=== PATIENT | male | born 1960 | race Caucasian/White ===

== ENCOUNTER 2017-04-04 01:09 | Observation (INO) | payer BC ==
[2017-04-04] MEDS ORDERED: SODIUM CHLORIDE 0.9% 500 ML IV STA (01:21)
[2017-04-04] MEDS ORDERED: MORPHINE SULFATE 4 MG/ML SYRINGE IV STA (01:21)
[2017-04-04] MEDS ORDERED: ONDANSETRON 4 MG/2 ML VIAL IVP STA (01:21)
[2017-04-04] MEDS ORDERED: SODIUM CHLORIDE 0.9% 1,000 ML IV STA (01:21)
[2017-04-04] MEDS ORDERED: NITROGLYCERIN OINT 1 INCH/GM PACKET TOPICAL STA (01:21)
[2017-04-04] MEDS ORDERED: ASPIRIN 81 MG PO STA (01:21)
[2017-04-04 01:55] LABS: Basophils # (A) 0.1 k/uL (0-0.2); Basophils % (A) 1 %; CH 31.8; CHCM 34.4; Eosinophils # (A) 0.1 k/uL (0-0.7); Eosinophils % (A) 2 %; HCT 45.7 % (39.0-53.0); HDW 2.23; HGB 15.8 gm/dL (13.0-17.5); Luc # (Auto) 0.23; Luc % (Auto) 3; Lymphocytes # (A) 3.6 k/uL (1.0-4.8); Lymphocytes % (A) 42 %; MCHC 34.5 g/dL (31.0-37.0); MCV 92.7 fL (80.0-100.0); Mean Platelet Volume 7.5; Monocytes # (A) 0.5 k/uL (0-1.0); Monocytes % (A) 5 %; Neutrophils % (A) 47 %; RBC 4.93 m/uL (4.30-5.90); WBC 8.6 k/uL (3.8-10.6); WBC (Perox) 8.54
[2017-04-04 02:02] LABS: Partial Thromboplastin Time 24.5 sec (22.0-30.0); Prothrombin Time 10.4 sec (9.0-12.0)
[2017-04-04 02:38] LABS: Creatine Kinase 372 U/L (55-170)
[2017-04-04 02:40] LABS: ALT 41 U/L (21-72); AST 33 U/L (17-59); Alkaline Phosphatase 133 U/L (38-126); Anion Gap 10 mmol/L; Blood Urea Nitrogen 18 mg/dL (9-20); Calcium 9.8 mg/dL (8.4-10.2); Carbon Dioxide 23 mmol/L (22-30); Chloride 104 mmol/L (98-107); Glucose 122 mg/dL (74-99); Magnesium 2.2 mg/dL (1.6-2.3); Non-African American GFR(MDRD) >60 (>60 ml/min/1.73 sqM); Potassium 4.1 mmol/L (3.5-5.1); Sodium 137 mmol/L (137-145); Total Bilirubin 0.7 mg/dL (0.2-1.3); Total Protein 7.2 g/dL (6.3-8.2)
[2017-04-04 02:50] LABS: Troponin I <0.012 ng/mL (0.000-0.034)
--- NOTE | 2017-04-04 02:50 | XR ---
EXAM: XR Chest, 2 Views CLINICAL HISTORY: Reason: Chest Pain TECHNIQUE: Frontal and lateral views of the chest. COMPARISON: No relevant prior studies available. FINDINGS: Lungs: Unremarkable. No consolidation. Pleural space: Unremarkable. No pneumothorax. Heart: Unremarkable. No cardiomegaly. Mediastinum: Unremarkable. Bones/joints: Unremarkable. IMPRESSION: Normal chest x-rays.
[2017-04-04 02:52] LABS: Creatine Kinase MB 4.4 ng/mL (0.0-2.4)
--- NOTE | 2017-04-04 04:25 | ED ---
Chest Pain HPI - General Chief Complaint: Chest Pain Stated Complaint: chest pain Time Seen by Provider: 04/04/17 01:12 Source: patient, EMS Mode of arrival: EMS - History of Present Illness Initial Comments: 36 years old gentleman was at work tonight he experienced some left-sided chest pain radiating to the left forearm he was lightheaded he was dizzy he was diaphoretic. His work does involve a lot of exertion he left heavy objects at work it repetitively for several hours daily at this point chest pain is 4/10. He denies any headaches no neck stiffness no abdominal pain no frequency urgency dysuria no sinus symptoms of TIA or CVA - Related Data Allergies Allergy/AdvReac Type Severity Reaction Status Date / Time No Known Allergies Allergy Verified 04/04/17 01:10 Review of Systems ROS Statement: Those systems with pertinent positive or pertinent negative responses have been documented in the HPI. ROS Other: All systems not noted in ROS Statement are negative. EKG Findings - EKG Comments: EKG Findings:: EKG is normal sinus rhythm ventricular rate is 62 NE interval is 148 QRS duration is 88 QT/QTc is 386/391 review of this EKG does not reveal any ST elevation or ST depression Past Medical History Past Medical History: Diabetes Mellitus, Sleep Apnea/CPAP/BIPAP Additional Past Medical History / Comment(s): "leaky valve" History of Any Multi-Drug Resistant Organisms: None Reported Past Surgical History: No Surgical Hx Reported Past Psychological History: Depression Smoking Status: Former smoker Past Alcohol Use History: Occasional Past Drug Use History: None Reported General Exam - General Exam Comments Initial Comments: General: The patient is awake and alert, in no distress, and does not appear acutely ill. Skin: Skin is warm and dry and no rashes or lesions are noted. Eye: Pupils are equal, round and reactive to light, extra-ocular movements are intact; there is normal conjunctiva bilaterally. Ears, nose, mouth and throat: There are moist mucous membranes and no oral lesions. Neck: The neck is supple, there is no tenderness or JVD. Cardiovascular: There is a regular rate and rhythm. No murmur, rub or gallop is appreciated. Respiratory: To auscultation bilateral, no wheezing no rhonchi no distress respiratory hampton noticed Gastrointestinal: Soft, non-distended, non-tender abdomen without masses or organomegaly noted. There is no rebound or guarding present. Bowel sounds are unremarkable. Back: There is no tenderness to palpation in the midline. There is no obvious deformity. Musculoskeletal: Normal ROM, no tenderness, There is no pedal edema. There is no calf tenderness or swelling. No cords were appreciated. Neurological: CN II-XII intact, Cranial nerves III through XII are intact. There are no obvious motor or sensory deficits. Coordination appears grossly intact. Speech is normal. Psychiatric: Cooperative, appropriate mood & affect, normal judgment. Course Vital Signs 04/04/17 04/04/17 04/04/17 01:10 01:29 03:37 Temperature 98.4 F Pulse Rate 80 65 74 Respiratory 18 18 16 Rate Blood Pressure 146/70 157/77 132/69 O2 Sat by Pulse 97 96 98 Oximetry Critical Care Time Critical Care Time: Yes Total Critical Care Time: 30 Critical Care Time: 1 at work tonight he experienced chest pain of the left side of the chest which lasted for greater than 30 minutes at lower down the left arm and he had a chest pain arrival to over 10 Disposition Clinical Impression: Chest pain Disposition: ADMITTED IP TO THIS HOSP Condition: Good Referrals: Sotero Oropeza DO [Primary Care Provider] - 1-2 days
[2017-04-04] MEDS ORDERED: NITROGLYCERIN SL TABS 0.4 MG TAB SUBLINGUAL PRN (04:34)
[2017-04-04] MEDS ORDERED: ACETAMINOPHEN TAB 325 MG TAB PO PRN (04:34)
[2017-04-04] MEDS ORDERED: HEPARIN SODIUM,PORCINE 5,000 UNIT/ML 1 ML VIAL IV ONE (04:34)
[2017-04-04] MEDS ORDERED: MORPHINE SULFATE 2 MG/ML SYRINGE IVP PRN (04:34)
[2017-04-04] MEDS ORDERED: HEPARIN SODIUM,PORCINE/D5W PMX 25,000 UNIT in DEXTROSE/WATER 1 500ML.BAG IV SCH (04:45)
[2017-04-04 05:45] VITALS: BMI 25.4
[2017-04-04 06:35] LABS: Glucose,Whole Blood 94 mg/dL (75-99)
[2017-04-04 07:57] LABS: Creatine Kinase 245 U/L (55-170)
[2017-04-04 08:00] VITALS: RESP 16; TEMP 97.6
[2017-04-04 08:11] LABS: Troponin I <0.012 ng/mL (0.000-0.034)
[2017-04-04 08:15] LABS: Creatine Kinase MB 3.4 ng/mL (0.0-2.4)
[2017-04-04] MEDS ORDERED: LISINOPRIL 10 MG TAB PO SCH (09:00)
--- NOTE | 2017-04-04 11:24 | P.CRDCN ---
History of Present Illness Consult date: 04/04/17 History of present illness: This is a 56-year-old male with no significant medical history to speak of. The patient states at one time many years ago he was told he had hypertension and diabetes and he underwent extensive placed on modifications and no longer is being treated for either. His only home medication is aspirin when necessary for pain. Patient states he was at work and had an acute onset of lightheadedness. He states he was walking towards chair to sit down when he all of a sudden got a left sided chest pain described as a pressure pain went down into the left arm following to the elbow. He states the pain persisted until he came to the emergency department and received IV morphine. He has been chest pain-free all night. He states he has never had an episode like this in the past. 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 He has no known history of CAD. He is a former smoker he quit in 1987. He has had a stress test in the past but in the mid s. He said his primary care doctor told him he has a "leaky valve". EKG shows a normal sinus mechanism with prominent T waves. No ST abnormality. Troponins are negative 2. D-dimer is negative. Review of Systems REVIEW OF SYSTEMS: Patient denies any chest discomfort. No shortness of breath. No diaphoresis. Denies headache, dizziness, blurred vision, double vision. No dyspnea on exertion. Patient denies any stomach discomfort. No nausea, vomiting. No hematochezia. No hematemesis. Denies any black stools or blood in his stools. No syncope. No palpitations. No cough. No recent fever or chills. No muscle weakness or numbness. Past Medical History Past Medical History: Diabetes Mellitus, Sleep Apnea/CPAP/BIPAP Additional Past Medical History / Comment(s): "leaky mitral valve", down 38lbs DM is diet and exercise controlled History of Any Multi-Drug Resistant Organisms: None Reported Past Surgical History: Appendectomy Additional Past Surgical History / Comment(s): right knee meniscus repair, colonoscopy Past Anesthesia/Blood Transfusion Reactions: No Reported Reaction Past Psychological History: Depression Smoking Status: Former smoker Past Alcohol Use History: Occasional Past Drug Use History: None Reported - Past Family History Mother Family Medical History: Diabetes Mellitus Additional Family Medical History / Comment(s): complication of dm Father Family Medical History: Congestive Heart Failure (CHF) Additional Family Medical History / Comment(s): recent passing from CHF Brother(s) Family Medical History: Coronary Artery Disease (CAD), Myocardial Infarction ([place] ) Sister(s) Family Medical History: Diabetes Mellitus Medications and Allergies Home Medications Medication Instructions Recorded Confirmed Type Aspirin 650 mg PO DAILY PRN 04/04/17 04/04/17 History Allergies Allergy/AdvReac Type Severity Reaction Status Date / Time No Known Allergies Allergy Verified 04/04/17 07:54 Physical Exam Vitals: Vital Signs Temp Pulse Pulse Resp BP BP Pulse Ox 04/04/17 07:58 97.6 F 45 L 16 106/49 97 04/04/17 05:54 53 L 18 04/04/17 05:30 97.8 F 56 L 18 123/70 95 04/04/17 04:56 97.3 F L 50 L 16 134/81 98 04/04/17 03:37 74 16 132/69 98 04/04/17 01:29 65 18 157/77 96 04/04/17 01:10 98.4 F 80 18 146/70 97 Intake and Output 04/03/17 04/04/17 04/04/17 22:59 06:59 14:59 Other: Voiding Method Toilet # Voids 2 Weight 79.1 kg GENERAL: This is a 56-year-old nail in no apparent distress at the time of my examination. HEENT: Head is atraumatic, normocephalic. Pupils are equal, round. Sclerae anicteric. Conjunctivae are clear. Mucous membranes of the mouth are moist. Neck is supple. There is no jugular venous distention. No carotid bruit is heard. LUNGS: Clear to auscultation no wheezes, rales or rhonchi. No chest wall tenderness is noted on palpation or with deep breathing. HEART: Regular rate and rhythm without murmurs, rubs or gallops. S1 and S2 heard. ABDOMEN: Soft, nontender. Bowel sounds are heard. No organomegaly noted. EXTREMITIES: 2+ peripheral pulses with no evidence of peripheral edema and no calf tenderness noted. NEUROLOGIC: Patient is awake, alert and oriented x3. Results 04/04/17 01:29 04/04/17 01:29 Cardiac Enzymes 08/04/04/17 04/04/17 Range/Units 01:29 01:29 06:58 AST 33 (17-59) U/L CK-MB (CK-2) 4.4 H* 3.4 H* (0.0-2.4) ng/mL Troponin I <0.012 <0.012 (0.000-0.034) ng/mL Coagulation 04/04/17 Range/Units 01:29 PT 10.4 (9.0-12.0) sec APTT 24.5 (22.0-30.0) sec CBC 04/04/17 Range/Units 01:29 WBC 8.6 (3.8-10.6) k/uL RBC 4.93 (4.30-5.90) m/uL Hgb 15.8 (13.0-17.5) gm/dL Hct 45.7 (39.0-53.0) % Plt Count 304 (150-450) k/uL Comprehensive Metabolic Panel 04/04/17 Range/Units 01:29 Sodium 137 (137-145) mmol/L Potassium 4.1 (3.5-5.1) mmol/L Chloride 104 (98-107) mmol/L Carbon Dioxide 23 (22-30) mmol/L BUN 18 (9-20) mg/dL Creatinine 0.70 (0.66-1.25) mg/dL Glucose 122 H (74-99) mg/dL Calcium 9.8 (8.4-10.2) mg/dL AST 33 (17-59) U/L ALT 41 (21-72) U/L Alkaline Phosphatase 133 H (38-126) U/L Total Protein 7.2 (6.3-8.2) g/dL Albumin 4.4 (3.5-5.0) g/dL Current Medications Generic Name Dose Route Start Last Admin Trade Name Freq PRN Reason Stop Dose Admin Acetaminophen 650 mg 04/04/17 04:34 Tylenol Tab PO Q4HR PRN Pain Aspirin 325 mg 04/05/17 09:00 Aspirin PO DAILY JOEL Atorvastatin Calcium 40 mg 04/04/17 21:00 Lipitor PO HS JOEL Sodium Chloride 1,000 mls @ 100 mls/hr 04/04/17 01:21 04/04/17 01:40 Saline 0.9% IV 04/04/17 11:20 100 mls/hr .Q10H STA Administration Heparin Sodium/Dextrose 25,000 500 mls @ 18.18 mls/hr 04/04/17 04:45 04:51 unit/ IV Solution IV 11.88 units/kg/hr .Q24H JOEL 18 mls/hr Protocol Administration 12 UNITS/KG/HR Lisinopril 10 mg 04/04/17 09:00 Zestril PO DAILY JOEL Morphine Sulfate 2 mg 04/04/17 04:34 Morphine Sulfate (Inj) IVP Q5M PRN Chest Pain Nitroglycerin 0.4 mg 04/04/17 04:34 Nitrostat SUBLINGUAL Q5M PRN Chest Pain Intake and Output 04/03/17 04/04/17 04/04/17 22:59 06:59 14:59 Other: Voiding Method Toilet # Voids 2 Weight 79.1 kg 04/04/17 01:29 04/04/17 01:29 Assessment and Plan Plan: ASSESSMENT 1. Chest pain PLAN We will order an echocardiogram as well as a stress echo to assess for any acute coronary syndrome. If this testing is negative, from a cardiac standpoint the patient is stable for discharge home. He can follow-up with his primary care doctor within one week. Nurse Practitioner note has been reviewed, I agree with a documented findings and plan of care. Patient was seen and examined.
[2017-04-04 11:44] VITALS: BP 137/77; PULSE 81
--- NOTE | 2017-04-04 12:19 | P.STRESS ---
- Stress Test Note Stress Test Results/Findings: Exam Performed: stress echo exercise Exam Date: 04/04/17 Reason for Exam: CHEST PAIN & VERTIGO Height: 5 ft 8 in Weight: 78.925 kg Protocol: STRESS ECHO Stage: IV Duration of Exercise: 10:59 Resting Heart Rate: 57 Resting Blood Pressure: 122/55 Maximum Achieved Heart Rate: 161 Maximum Achieved Blood Pressure: 198/64 85% PMHR: 141 100% PMHR: 166 METS: 12.1 Technologist Comment: Stress Test Results/Findings: This patient is being evaluated for symptoms of chest pain. She has history of hypertension and diabetes and also smoking history. Baseline EKG showed sinus rhythm with normal [place] interval and QRS duration. Patient walked on the Yuval protocol for 10 minutes and 15 seconds achieving a maximum heart rate of 161 with blood pressure 192/60. EKGs taken during and after the exercise did not reveal any significant changes from the baseline. Patient did not express any chest pain. Echo data: Baseline echo images showed normal wall motion and thickening. Exercise echo images showed augmentation of wall motion and thickening in all segments. Final impression: #1. Negative stress test. #2. Negative stress echo.
[2017-04-04] MEDS ORDERED: ASPIRIN 325 MG TAB PO PRN (13:37)
--- NOTE | 2017-04-04 14:37 | P.DS ---
Providers Date of admission: 04/04/17 04:34 Expected date of discharge: 04/04/17 Attending physician: Marshal Lindsay MD Consults: 04/04/17 04:34 Consult Physician Urgent Consulting Provider: Krunal Thomas Consult Reason/Comments: Chest pain Do you want consulting provider notified?: Yes Primary care physician: [facility] Hospital Course: History of present illness This is a 56-year-old male with no significant medical history to speak of. The patient states at one time many years ago he was told he had hypertension and diabetes and he underwent extensive placed on modifications and no longer is being treated for either. His only home medication is aspirin when necessary for pain. Patient states he was at work and had an acute onset of lightheadedness. He states he was walking towards chair to sit down when he all of a sudden got a left sided chest pain described as a pressure pain went down into the left arm following to the elbow. He states the pain persisted until he came to the emergency department and received IV morphine. He has been chest pain-free all night. He states he has never had an episode like this in the past. 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 He has no known history of CAD. He is a former smoker he quit in 1987. He has had a stress test in the past but in the mid 90s. He said his primary care doctor told him he has a "leaky valve". EKG shows a normal sinus mechanism with prominent T waves. No ST abnormality. Troponins are negative 2. D-dimer is negative. Hospital course Patient was evaluated by cardiology, stress test and 2-D echo done and normal. He has been asymptomatic during entire hospital stay. Discharged home in stable condition with recommendations to follow-up with PCP in one week. Discharge time less than 30 minutes. Physical exam on day of discharge General-no acute distress, awake, oriented 3. HEENT-normocephalic and atraumatic, neck supple. Cardiovascular exam reveals normal S1-S2, regular rate, no murmurs rubs or gallops. Chest clear to auscultation bilaterally, good respiratory effort. Abdomen is soft, nondistended, normoactive bowel sounds. Extremities no edema, peripheral pulses 2+ bilaterally. Patient Condition at Discharge: Good Plan - Discharge Summary New Discharge Prescriptions: New Atorvastatin [Lipitor] 40 mg PO HS tab Lisinopril [Zestril] 10 mg PO DAILY tab Continue Aspirin 650 mg PO DAILY PRN PRN Reason: Pain Discharge Medication List Aspirin 650 mg PO DAILY PRN 04/04/17 [History] Atorvastatin [Lipitor] 40 mg PO HS tab 04/04/17 [Rx] Lisinopril [Zestril] 10 mg PO DAILY tab 04/04/17 [Rx] Follow up Appointment(s)/Referral(s): Sotero Oropeza DO [Primary Care Provider] - 1-2 days Discharge Disposition: HOME SELF-CARE
[2017-04-04] MEDS ORDERED: ATORVASTATIN 40 MG TAB PO SCH (21:00)
--- NOTE | 2017-04-05 08:31 | P.HPIM ---
History of Present Illness H&P Date: 04/04/17 Chief Complaint: Chest pain This patient is a pleasant 56 years old male significant history of hypertension who developed left-sided chest pain with radiation to his left arm seated with lightheadedness I did not perform pain lasted close to an hour no alleviating or Aggravating factors, presented so he to the emergency room, is a former smoker his last stress test was 10 years ago. in The emergency room his EKG was nonspecific and trops negative Review of Systems Constitutional: Patient reports no fever, no chills, no weight changes, no change in appetite Eyes: Patient reports no double vision, no visual changes ENT: Patient reports no rhinorrhea, no post nasal drip, no sore throat Cardiovascular: Patient reports no chest, no edema, no palpitations, no syncope , no orthopnea, no paroxysmal nocturnal dyspnea. Respiratory: Patient reports no dyspnea, no cough, no wheeze Gastrointestinal: Patient reports no nausea, no vomiting, no constipation, no diarrhea Genitourinary: Patient reports no dysuria, no urinary frequency, no hematuria. Musculoskeletal: Patient reports no unusual joint pain, no joint swelling or weakness. Patient reports no muscular pain. Psychiatric: Patient reports no changes in mood, no sleeping problems. Patient reports no changes in memory. Endocrine: Patient reports no thirst, no polyuria, no cold intolerance, no heat intolerance. Neurological: Patient reports no unusual paresthesias, no seizures, no paresis , no paralysis, no facila droop, no headache. Heme/Lymphatic: Patient reports no easy bruising, no bleeding tendency, no lymphadenopathy. Allergic/ Immunologic: Patient reports no recent allergic reactions or immunologic history. Skin: Patient reports no rashes or unusual lesions. Eyes: denies blurred vision, denies bulging eye, denies decreased vision, denies diplopia Past Medical History Past Medical History: Diabetes Mellitus, Sleep Apnea/CPAP/BIPAP Additional Past Medical History / Comment(s): "leaky mitral valve", down 38lbs DM is diet and exercise controlled History of Any Multi-Drug Resistant Organisms: None Reported Past Surgical History: Appendectomy Additional Past Surgical History / Comment(s): right knee meniscus repair, colonoscopy Past Anesthesia/Blood Transfusion Reactions: No Reported Reaction Past Psychological History: Depression Smoking Status: Former smoker Past Alcohol Use History: Occasional Past Drug Use History: None Reported - Past Family History Mother Family Medical History: Diabetes Mellitus Additional Family Medical History / Comment(s): complication of dm Father Family Medical History: Congestive Heart Failure (CHF) Additional Family Medical History / Comment(s): recent passing from CHF Brother(s) Family Medical History: Coronary Artery Disease (CAD), Myocardial Infarction ([place] ) Sister(s) Family Medical History: Diabetes Mellitus Medications and Allergies Home Medications Medication Instructions Recorded Confirmed Type Aspirin 650 mg PO DAILY PRN 04/04/17 04/04/17 History Allergies Allergy/AdvReac Type Severity Reaction Status Date / Time No Known Allergies Allergy Verified 04/04/17 07:54 Physical Exam Vitals: Vital Signs Temp Pulse Resp BP Pulse Ox 04/04/17 12:00 81 16 04/04/17 11:43 97.6 F 81 16 137/77 93 L - Constitutional General appearance: disheveled, no acute distress - EENT Eyes: PERRLA, dentition normal, no ptosis, normal appearance ENT: no thrush, no tonsillar exudates Ears: bilateral: normal - Neck Neck: normal ROM, no rigidity, no thyromegaly Carotids: bilateral: upstroke normal - Respiratory Respiratory: bilateral: CTA, negative: rales, rhonchi - Cardiovascular Rhythm: regular Heart sounds: normal: S1, S2 Abnormal Heart Sounds: no S3 Gallop, no S4 Gallop - Gastrointestinal General gastrointestinal: no distended, no hepatomegaly, normal bowel sounds, soft, no tenderness - Integumentary Integumentary: no calor, no flushed, no jaundiced, normal, no pale, no ulcer - Musculoskeletal Musculoskeletal: gait normal, strength equal bilaterally - Psychiatric Psychiatric: A&O x's 3, appropriate affect Results CBC & Chem 7: 04/04/17 01:29 04/04/17 01:29 Labs: Abnormal Lab Results - Last 24 Hours (Table) 04/04/17 Range/Units 06:58 CK-MB (CK-2) 3.4 H* (0.0-2.4) ng/mL Thrombosis Risk Factor Assmnt - Choose All That Apply Each Factor Represents 1 point: Age 41-60 years Thrombosis Risk Factor Assessment Total Risk Factor Score: 1 Thrombosis Risk Factor Assessment Level: Low Risk Assessment and Plan (1) Chest pain Narrative/Plan: My plan is to provide oxygen to be to EKG, telemetry, and nitro glycerin as needed , cardiology consultation. he will most probably need stress test in view of his risk factors profile Status: Acute (2) Diabetes mellitus Narrative/Plan: Patient claims that he had diabetes long time ago and he was treated for that and is no longer taking medications 1 monitor his sugars and use insulin as needed, i will obtain hemoglobin A1c. Status: Suspected (3) HTN (hypertension), benign Narrative/Plan: Again the patient claims he was treated for hypertension in the past and is on no longer taking medications Will monitor his vitals signs and proceed as per results Status: Chronic Time with Patient: Greater than 30
[2017-04-05] MEDS ORDERED: ASPIRIN 325 MG TAB PO SCH (09:00)
--- NOTE | 2017-04-08 10:09 | ECHOS ---
Stress Test Results/Findings: Exam Performed: stress echo exercise Exam Date: 04/04/17 Reason for Exam: CHEST PAIN & VERTIGO Height: 5 ft 8 in Weight: 78.925 kg Protocol: STRESS ECHO Stage: IV Duration of Exercise: 10:59 Resting Heart Rate: 57 Resting Blood Pressure: 122/55 Maximum Achieved Heart Rate: 161 Maximum Achieved Blood Pressure: 198/64 85% PMHR: 141 100% PMHR: 166 METS: 12.1 Technologist Comment: Stress Test Results/Findings: This patient is being evaluated for symptoms of chest pain. She has history of hypertension and diabetes and also smoking history. Baseline EKG showed sinus rhythm with normal [place] interval and QRS duration. Patient walked on the Yuval protocol for 10 minutes and 15 seconds achieving a maximum heart rate of 161 with blood pressure 192/60. EKGs taken during and after the exercise did not reveal any significant changes from the baseline. Patient did not express any chest pain. Echo data: Baseline echo images showed normal wall motion and thickening. Exercise echo images showed augmentation of wall motion and thickening in all segments. Final impression: #1. Negative stress test. #2. Negative stress echo. MTDD
--- NOTE | 2017-04-08 15:18 | ECHOF ---
Referral Reason:Chest pain and cardiomyopathy MEASUREMENTS -------- HEIGHT: 172.7 cm WEIGHT: 78.9 kg BP: 122/55 IVSd: 1.2 cm (0.6 - 1.1) LVIDd: 4.1 cm (3.9 - 5.3) LVPWd: 1.2 cm (0.6 - 1.1) EDV(Teich): 73 ml IVSs: 1.7 cm LVIDs: 2.6 cm LVPWs: 1.7 cm %IVS Thck: 47 % ESV(Teich): 25 ml EF(Teich): 66 % %FS: 36 % SV(Teich): 49 ml IVC: 2.1 cm Ao Diam: 3.2 cm (2.0 - 3.7) AV Cusp: 1.9 cm (1.5 - 2.6) LA Diam: 2.7 cm (2.7 - 3.8) MV EXCURSION: 18.221 mm (> 18.000) MV EF SLOPE: 192 mm/s (70 - 150) EPSS: 0.5 cm MV E David: 0.98 m/s MV DecT: 127 ms MV Dec Appling: 7.7 m/s MV A David: 0.69 m/s MV E/A Ratio: 1.43 MV PHT: 37 ms MR Vmax: 0.84 m/s MR maxP.02 mmHg AV Vmax: 1.65 m/s AV maxP.95 mmHg TR Vmax: 1.24 m/s TR maxP.16 mmHg RAP: 5.00 mmHg RVSP: 11.16 mmHg FINDINGS -------- Sinus rhythm. This was a technically good study. There is borderline concentric left ventricular hypertrophy. Overall left ventricular systolic function is normal with, an EF between 55 - 60 %. The right ventricle is normal in size and function. The left atrium is normal in size. The right atrium is normal in size. The aortic valve is trileaflet, and appears structurally normal. No aortic stenosis or regurgitation. Mild mitral regurgitation is present. Trace tricuspid regurgitation present. The right ventricular systolic pressure, as measured by Doppler, is 11.16mmHg. Pulmonic valve appears structurally normal. The aortic root size is normal. The pericardium is normal. CONCLUSIONS -------- 1. Sinus rhythm. 2. Trace tricuspid regurgitation present. 3. The right ventricular systolic pressure, as measured by Doppler, is 11.16mmHg. 4. Pulmonic valve appears structurally normal. 5. The aortic root size is normal. 6. The pericardium is normal. 7. This was a technically good study. 8. There is borderline concentric left ventricular hypertrophy. 9. Overall left ventricular systolic function is normal with, an EF between 55 - 60 %. 10. The right ventricle is normal in size and function. 11. The left atrium is normal in size. 12. The right atrium is normal in size. 13. The aortic valve is trileaflet, and appears structurally normal. No aortic stenosis or regurgitation. 14. Mild mitral regurgitation is present. PROFILE SAW SETUP OPERATOR: Kristen Saldivar RDCS
== END 2017-04-04 14:43 | disposition home or self-care (01) ==
LOC: EC 01:09 → 3OBS 04:34
PROVIDERS: ADMIT Internal Medicine; ATTEND Internal Medicine
DX: R42 Dizziness and giddiness (principal); R61 Generalized hyperhidrosis; G47.30 Sleep apnea, unspecified; Z99.89 Dependence on other enabling machines and devices; F32.9 Major depressive disorder, single episode, unspecified; Z87.891 Personal history of nicotine dependence; M79.602 Pain in left arm; Z82.49 Family history of ischemic heart disease and other diseases of the circulatory system; Z83.3 Family history of diabetes mellitus
CPT/HCPCS: 99291; 96374; 96375; 96361 ×4; 36415; 93005; 93017; 93306; 93350; 85379; 80053; 82550; 82553; 83735; 84484; 85025; 85610; 85730; 71020; G0378; J2270; J1644 ×2

== ENCOUNTER 2018-03-26 05:34 | Emergency (ER) | payer BC, OTHER ==
[2018-03-26] MEDS ORDERED: SODIUM CHLORIDE 0.9% 1,000 ML IV ONE (06:28)
[2018-03-26] MEDS ORDERED: MORPHINE SULFATE 4 MG/ML SYRINGE IVP STA (06:29)
[2018-03-26] MEDS ORDERED: ONDANSETRON 4 MG/2 ML VIAL IVP STA (06:33)
[2018-03-26 06:43] LABS: Basophils # (A) 0.1 k/uL (0-0.2); Basophils % (A) 1 %; Eosinophils # (A) 0.2 k/uL (0-0.7); Eosinophils % (A) 2 %; HCT 47.7 % (39.0-53.0); HGB 15.8 gm/dL (13.0-17.5); Lymphocytes # (A) 2.8 k/uL (1.0-4.8); Lymphocytes % (A) 33 %; MCH 31.1 pg (25.0-35.0); MCHC 33.2 g/dL (31.0-37.0); MCV 93.7 fL (80.0-100.0); Mean Platelet Volume 7.3; Monocytes # (A) 0.5 k/uL (0-1.0); Monocytes % (A) 6 %; Neutrophils # (A) 4.8 k/uL (1.3-7.7); Neutrophils % (A) 56 %; Platelet Count 298 k/uL (150-450); RBC 5.09 m/uL (4.30-5.90); RDW 11.9 % (11.5-15.5); WBC 8.5 k/uL (3.8-10.6)
[2018-03-26 06:47] LABS: Appearance,Urine Clear (Clear); Bilirubin,Urine Negative (Negative); Blood,Urine Large (Negative); Color,Urine Yellow; Glucose,Urine (UA) Negative (Negative); Ketones,Urine Negative (Negative); Leukocyte Esterase,Urine Negative (Negative); Mucus,Urine Rare /hpf; Nitrite,Urine Negative (Negative); Protein,Urine Trace (Negative); RBC,Urine >182 /hpf (0-5); Specific Gravity,Urine 1.015 (1.001-1.035); Urobilinogen,Urine <2.0 mg/dL (<2.0); WBC,Urine 6 /hpf (0-5)
[2018-03-26] MEDS ORDERED: HYDROmorphone 1 MG/ML 1 ML SYRINGE IVP STA (06:55)
[2018-03-26 06:56] LABS: ALT 35 U/L (21-72); AST 30 U/L (17-59); Albumin 4.7 g/dL (3.5-5.0); Alkaline Phosphatase 116 U/L (38-126); Amylase 130 U/L (30-110); Anion Gap 10 mmol/L; Blood Urea Nitrogen 17 mg/dL (9-20); Calcium 9.6 mg/dL (8.4-10.2); Carbon Dioxide 21 mmol/L (22-30); Chloride 108 mmol/L (98-107); Glucose 132 mg/dL (74-99); Lipase 195 U/L (23-300); Sodium 139 mmol/L (137-145); Total Bilirubin 0.5 mg/dL (0.2-1.3); Total Protein 7.6 g/dL (6.3-8.2)
[2018-03-26 07:13] VITALS: RESP 18
[2018-03-26] MEDS ORDERED: KETOROLAC 30 MG/ML 1 ML VIAL IVP STA (07:38)
--- NOTE | 2018-03-26 07:40 | ED ---
General Adult HPI - General Chief complaint: Abdominal Pain Stated complaint: back pain Time Seen by Provider: 03/26/18 07:31 Source: patient, family, RN notes reviewed Mode of arrival: ambulatory Limitations: no limitations - History of Present Illness Initial comments: Patient is a pleasant 37-year-old male presenting to the emergency Department with complaints of left flank pain. Onset of symptoms was around noon yesterday. Symptoms have been waxing and waning. Discomfort is currently 4/10 following pain medication. Patient states discomfort was severe at times. Patient did have some associated nausea earlier however this has resolved. No history of similar symptoms previously. Discomfort started in the left CVA region and did radiate towards the left lower abdomen. Patient did have a couple episodes of loose stools. No dysuria. No fevers. - Related Data Previous Rx's Medication Instructions Recorded Ibuprofen 600 mg PO Q6HR #30 tablet 06/13/17 Ketorolac [Toradol] 10 mg PO Q6HR PRN #15 tab 03/26/18 Metoclopramide HCl [Reglan] 10 mg PO Q6HR PRN #15 tablet 03/26/18 Tamsulosin [Flomax] 0.4 mg PO DAILY #14 cap 03/26/18 Allergies Allergy/AdvReac Type Severity Reaction Status Date / Time horseradish Allergy Rash/Hives Verified 03/26/18 05:41 Review of Systems ROS Statement: Those systems with pertinent positive or pertinent negative responses have been documented in the HPI. ROS Other: All systems not noted in ROS Statement are negative. Constitutional: Denies: fever Eyes: Denies: eye pain ENT: Denies: ear pain Respiratory: Denies: cough Cardiovascular: Denies: chest pain Endocrine: Denies: fatigue Gastrointestinal: Reports: as per HPI, abdominal pain, nausea Genitourinary: Denies: dysuria Musculoskeletal: Reports: as per HPI, back pain Skin: Denies: rash Neurological: Denies: weakness Past Medical History Past Medical History: Diabetes Mellitus, Sleep Apnea/CPAP/BIPAP Additional Past Medical History / Comment(s): "leaky mitral valve", down 38lbs DM is diet and exercise controlled History of Any Multi-Drug Resistant Organisms: None Reported Past Surgical History: Appendectomy Additional Past Surgical History / Comment(s): right knee meniscus repair, colonoscopy Past Anesthesia/Blood Transfusion Reactions: No Reported Reaction Past Psychological History: Depression Smoking Status: Former smoker Past Alcohol Use History: Occasional Past Drug Use History: None Reported - Past Family History Mother Family Medical History: Diabetes Mellitus Additional Family Medical History / Comment(s): complication of dm Father Family Medical History: Congestive Heart Failure (CHF) Additional Family Medical History / Comment(s): recent passing from CHF Brother(s) Family Medical History: Coronary Artery Disease (CAD), Myocardial Infarction ([place] ) Sister(s) Family Medical History: Diabetes Mellitus General Exam Limitations: no limitations General appearance: alert, in no apparent distress Head exam: Present: atraumatic Eye exam: Present: normal appearance, PERRL ENT exam: Present: normal oropharynx Neck exam: Present: normal inspection Respiratory exam: Present: normal lung sounds bilaterally Cardiovascular Exam: Present: regular rate, normal rhythm Expanded Peripheral pulses: 2+: Posterior Tibialis (R), Posterior Tibialis (L), Dorsalis Pedis (R), Dorsalis Pedis (L) GI/Abdominal exam: Present: soft, tenderness (Patient does have mild to moderate tenderness left lower quadrant.). Absent: distended Extremities exam: Present: normal inspection Back exam: Present: CVA tenderness (L) Neurological exam: Present: alert Psychiatric exam: Present: normal affect, normal mood Skin exam: Present: normal color Course Vital Signs 03/26/18 03/26/18 03/26/18 05:37 07:00 07:12 Temperature 98.3 F Pulse Rate 80 77 61 Respiratory 22 24 18 Rate Blood Pressure 212/91 201/105 150/65 O2 Sat by Pulse 98 95 98 Oximetry 03/26/18 08:00 Temperature Pulse Rate 76 Respiratory 18 Rate Blood Pressure 114/55 O2 Sat by Pulse 99 Oximetry Medical Decision Making - Medical Decision Making patient reevaluated and significantly improved. Patient is now resting comfortably in bed. Patient and family updated on results and need for follow- up. Specifically updated on need for follow-up x-ray of the left iliac wing. - Lab Data Result diagrams: 03/26/18 06:30 03/26/18 06:30 Lab Results 03/26/18 03/26/18 03/26/18 Range/Units 06:30 06:30 06:30 WBC 8.5 (3.8-10.6) k/uL RBC 5.09 (4.30-5.90) m/uL Hgb 15.8 (13.0-17.5) gm/dL Hct 47.7 (39.0-53.0) % MCV 93.7 (80.0-100.0) fL MCH 31.1 (25.0-35.0) pg MCHC 33.2 (31.0-37.0) g/dL RDW 11.9 (11.5-15.5) % Plt Count 298 (150-450) k/uL Neutrophils % 56 % Lymphocytes % 33 % Monocytes % 6 % Eosinophils % 2 % Basophils % 1 % Neutrophils # 4.8 (1.3-7.7) k/uL Lymphocytes # 2.8 (1.0-4.8) k/uL Monocytes # 0.5 (0-1.0) k/uL Eosinophils # 0.2 (0-0.7) k/uL Basophils # 0.1 (0-0.2) k/uL Sodium 139 (137-145) mmol/L Potassium 5.0 (3.5-5.1) mmol/L Chloride 108 H (98-107) mmol/L Carbon Dioxide 21 L (22-30) mmol/L Anion Gap 10 mmol/L BUN 17 (9-20) mg/dL Creatinine 0.90 (0.66-1.25) mg/dL Est GFR (CKD-EPI)AfAm >90 (>60 ml/min/1.73 sqM) Est GFR (CKD-EPI)NonAf >90 (>60 ml/min/1.73 sqM) Glucose 132 H (74-99) mg/dL Calcium 9.6 (8.4-10.2) mg/dL Total Bilirubin 0.5 (0.2-1.3) mg/dL AST 30 (17-59) U/L ALT 35 (21-72) U/L Alkaline Phosphatase 116 (38-126) U/L Total Protein 7.6 (6.3-8.2) g/dL Albumin 4.7 (3.5-5.0) g/dL Amylase 130 H (30-110) U/L Lipase 195 (23-300) U/L Urine Color Yellow Urine Appearance Clear (Clear) Urine pH 7.0 (5.0-8.0) Ur Specific Dola 1.015 (1.001-1.035) Urine Protein Trace H (Negative) Urine Glucose (UA) Negative (Negative) Urine Ketones Negative (Negative) Urine Blood Large H (Negative) Urine Nitrite Negative (Negative) Urine Bilirubin Negative (Negative) Urine Urobilinogen <2.0 (<2.0) mg/dL Ur Leukocyte Esterase Negative (Negative) Urine RBC >182 H (0-5) /hpf Urine WBC 6 H (0-5) /hpf Urine Mucus Rare H (None) /hpf - Radiology Data Radiology results: report reviewed (computed tomography scan of abdomen and pelvis shows 0.4 cm proximal left ureteral stone. Probable benign left iliac wing osseous finding.), image reviewed (x-ray shows nonobstructive pattern. Left sided nephrolithiasis.) Disposition Clinical Impression: Ureterolithiasis Disposition: HOME SELF-CARE Condition: Stable Instructions: Kidney Stones (ED) Additional Instructions: please follow-up with primary care physician in the next day or 2 for recheck. Also consider follow-up with urology, number provided. Return for fever, increased pain, uncontrolled vomiting, worsening symptoms or other concerns. Prescriptions: Ketorolac [Toradol] 10 mg PO Q6HR PRN #15 tab PRN Reason: Pain Metoclopramide HCl [Reglan] 10 mg PO Q6HR PRN #15 tablet PRN Reason: Nausea Tamsulosin [Flomax] 0.4 mg PO DAILY #14 cap Is patient prescribed a controlled substance at d/c from ED?: No Referrals: Sotero Oropeza DO [Primary Care Provider] - 1-2 days Joseph Weems MD [STAFF PHYSICIAN] - 1-2 days Time of Disposition: 09:41
--- NOTE | 2018-03-26 07:43 | XR ---
EXAMINATION TYPE: XR KUB DATE OF EXAM: 03/26/2018 7:27 AM CLINICAL HISTORY: Low back pain into abdomen. TECHNIQUE: Two Upright KUB images of the abdomen are obtained. COMPARISON: None. FINDINGS: Scattered gas is seen in non-distended stomach andr small bowel loops. Gas and fecal materi al is seen in non-distended colon. There is 5 mm calculus mid pole level left kidney superior L3 vert ebra. Left-sided pelvic phleboliths are present. No pneumoperitoneum is seen. Lung bases are clear. M ild to moderate axial joint space loss in both hips is present. IMPRESSION: Overall nonobstructive bowel gas pattern. Left-sided nephrolithiasis noted.
--- NOTE | 2018-03-26 09:28 | CT ---
EXAMINATION TYPE: CT abdomen pelvis wo con DATE OF EXAM: 03/26/2018 COMPARISON: Abdomen x-ray study 03/26/2018 INDICATION: LLQ pain, Lt flank pain DLP: 752 mGycm, Automated exposure control for dose reduction was used. CONTRAST: 0 mL of Isovue 300. Study performed without Oral Contrast TECHNIQUE: Axial images were obtained from above the diaphragm to the pubic rami in the axial plane a t 5 mm thick sections. Reconstructed images are reviewed on the computer in the coronal plane. FINDINGS: Limited CT sections are obtained the lung bases. The lung bases are clear. CT ABDOMEN: Liver: Normal Spleen: Normal Pancreas: Normal Adrenal glands: The adrenal glands are normal. Gallbladder: Normal Kidneys: No masses are evident. There is mild left hydronephrosis. No cysts are present. There is a 0.4 cm nonobstructing renal stone at the inferior pole left kidney. No right renal stones are evident . There is a proximal left ureteral stone causing mild left hydronephrosis and hydroureter measures 0 .4 cm. Series 3 image 68. Aorta: Vascular calcification is within the aorta. Inferior vena cava: Normal. CT PELVIS: Loops of bowel within the abdomen and pelvis are normal. The study is performed without oral cont rast limiting the evaluation. Scattered diverticuli are noted within the sigmoid colon. Appendix: Not identified Urinary bladder: Normal. Genitourinary structures: Prostate appears normal. Osseous structures: There is a sclerotic bordered lytic area within the medial left iliac wing measur ing 1.8 cm. A couple of adjacent sclerotic punctate areas are present. This is a more benign appearan ce. IMPRESSIONS: 1. 0.4 cm obstructing proximal left ureteral stone with mild left hydronephrosis and proximal hydrou reter. 2. Diverticulosis without acute diverticulitis. 3. Probably benign left iliac wing osseous findings. Follow-up x-ray of the pelvis in 3 months to ree valuate this finding.
[2018-03-26 10:33] VITALS: BP 122/68; PULSE 72; TEMP 98
== END 2018-03-26 10:34 | disposition home or self-care (01) ==
LOC: EC 05:34
DX: N20.2 Calculus of kidney with calculus of ureter (principal); E11.9 Type 2 diabetes mellitus without complications; G47.30 Sleep apnea, unspecified; Z87.891 Personal history of nicotine dependence; Z91.018 Allergy to other foods; Z90.49 Acquired absence of other specified parts of digestive tract; Z99.89 Dependence on other enabling machines and devices
CPT/HCPCS: 36415; 74018; 74176; 80053; 81001; 82150; 83690; 85025; 96361; 96374; 96375; 99284

== ENCOUNTER → 2018-04-06 | Outpatient (CLI) | payer BC ==
--- NOTE | 2018-04-06 21:35 | XR ---
EXAMINATION TYPE: XR KUB DATE OF EXAM: 04/06/2018 9:11 PM CLINICAL HISTORY: Left flank pain TECHNIQUE: 2 upright KUB image of the abdomen. COMPARISON: None. FINDINGS: No pneumoperitoneum. No dilated loops of large or small bowel. 4 mm left sided inferior berenice e renal calculus is again seen. No abnormal intra-abdominal or pelvic calcifications. Osseous structu res are intact. Benign left iliac wing lesion is not well delineated on the current study. Limited ev aluation of lower thorax is unremarkable. IMPRESSION: 1. No acute intra-abdominal or pelvic process. 2. Redemonstration of left-sided nonobstructing renal calculus. 3. Benign-appearing left iliac wing lesion is not well delineated on the current study.
== END | disposition home or self-care (01) ==
LOC: RADXRMAIN 20:57
PROVIDERS: ATTEND Urology
DX: N20.0 Calculus of kidney (principal)
CPT/HCPCS: 74018

== ENCOUNTER → 2018-04-10 | Outpatient (CLI) | payer BC ==
--- NOTE | 2018-04-10 12:52 | XR ---
EXAMINATION TYPE: XR KUB DATE OF EXAM: 04/10/2018 HISTORY: Pain Comparison: None.Single KUB is submitted for interpretation. Findings: Right renal calculi: None Visualized. Right ureteral calculi: None Visualized. Left renal calculi: 4 mm calculus overlies the mid pole left kidney. Left ureteral calculi: Double pigtail ureteral stent is noted. Pelvic calcifications: None Visualized. Bowel gas pattern is unremarkable. No free air. No mass effects. IMPRESSION: 1. Left ureteral stent and left renal calculus.
== END | disposition home or self-care (01) ==
LOC: RADXRMAIN 12:30
PROVIDERS: ATTEND Urology
DX: N20.0 Calculus of kidney (principal); Z96.0 Presence of urogenital implants
CPT/HCPCS: 74018

== ENCOUNTER → 2019-06-27 | Outpatient (CLI) | payer BC ==
--- NOTE | 2019-06-27 16:37 | CT ---
EXAMINATION TYPE: CT angio chest DATE OF EXAM: 06/27/2019 COMPARISON: NONE HISTORY: Pleurisy, chest pain x1 month. ANDREY. CT DLP: 360.5 mGycm. Automated Exposure Control for Dose Reduction was Utilized. CONTRAST: CTA scan of the thorax is performed with IV Contrast, patient injected with 100 mL of Isovue 370, pul monary embolism protocol. MIP Images are created on CT scanner and reviewed. FINDINGS: LUNGS: Interlobular septal thickening is seen. Dependent groundglass opacities are scattered angiogra phic. Dependent bibasilar subsegmental atelectasis. The lungs are grossly clear, there is no concerni ng parenchymal mass or nodule identified. There is no pleural effusion or pneumothorax seen. The t racheobronchial tree is patent. MEDIASTINUM: There is satisfactory enhancement of the pulmonary artery and its branches, there is no CT evidence for pulmonary embolism. There are no greater than 1 cm hilar or mediastinal lymph nodes. No cardiomegaly or pericardial effusion is seen. At least mild coronary artery calcifications, dif ficult to evaluate for given angiographic phase of contrast enhancement. Moderate atherosclerosis of the thoracic aorta. Thoracic aorta is within normal limits of size measuring 3.3 cm. Aortic root carmel ures 4.1 cm, mildly dilated. This is measured on coronal series 13 image 48. OTHER: There is diffuse hypoattenuation of the hepatic parenchyma in the visualized left vertebral ar todd from the aortic arch. Liver, most commonly related to hepatic steatosis (limiting evaluation for hepatic masses. Angiographic phase of the liver also limits evaluation of the liver. IMPRESSION: 1. Findings of mild interstitial phase pulmonary edema. Echocardiogram could assess for cardiac funct ion and possible congestive heart failure. Noncardiogenic fluid overload is also possible. 2. 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 3. At least mild coronary calcifications, a marker of coronary artery disease. 4. Incidentally noted hepatic steatosis.
== END | disposition home or self-care (01) ==
LOC: RADCTMAIN 09:57
PROVIDERS: ATTEND Family Medicine
DX: I71.2 Thoracic aortic aneurysm, without rupture (principal); I25.10 Atherosclerotic heart disease of native coronary artery without angina pectoris; J81.1 Chronic pulmonary edema
CPT/HCPCS: 71275; Q9967

== ENCOUNTER → 2021-02-06 | Outpatient (CLI) | payer BC ==
[2021-02-06 14:38] LABS: Basophils # (A) 0.1 k/uL (0-0.2); Basophils % (A) 1 %; Eosinophils # (A) 0.1 k/uL (0-0.7); Eosinophils % (A) 2 %; HCT 44.1 % (39.0-53.0); HGB 14.7 gm/dL (13.0-17.5); Lymphocytes # (A) 2.8 k/uL (1.0-4.8); Lymphocytes % (A) 42 %; MCH 30.7 pg (25.0-35.0); MCHC 33.4 g/dL (31.0-37.0); Mean Platelet Volume 7.1; Monocytes # (A) 0.3 k/uL (0-1.0); Monocytes % (A) 5 %; Neutrophils # (A) 3.2 k/uL (1.3-7.7); Neutrophils % (A) 49 %; Platelet Count 296 k/uL (150-450); RDW 11.9 % (11.5-15.5); WBC 6.6 k/uL (3.8-10.6)
[2021-02-06 14:49] LABS: Potassium 4.2 mmol/L (3.5-5.1)
== END | disposition home or self-care (01) ==
LOC: LABPAT 14:00
PROVIDERS: ATTEND Orthopaedic Surgery
DX: Z01.812 Encounter for preprocedural laboratory examination (principal); I45.19 Other right bundle-branch block; M23.91 Unspecified internal derangement of right knee; R00.1 Bradycardia, unspecified
CPT/HCPCS: 36415; 80051; 85025; 93005

== ENCOUNTER 2021-02-08 10:07 | Day surgery (SDC) | payer BC ==
[2021-02-03 11:39] VITALS: BMI 27.3
--- NOTE | 2021-02-07 15:50 | HP ---
HISTORY AND PHYSICAL REASON FOR ADMISSION: Surgery scheduled for 02/08/2021 HISTORY OF PRESENT ILLNESS: Rivas Greenberg is a 60-year-old gentleman seen with progressive right knee pain. Options were discussed. He elected to proceed with arthroscopy. Consent was obtained. PAST MEDICAL HISTORY: Hyperlipidemia, tlo-zdsopmc-dxpjtyiph diabetes. PAST SURGICAL HISTORY: Knee arthroscopy, appendectomy, lithotripsy. DAILY MEDICATIONS: Atorvastatin, ibuprofen, Naprosyn, aspirin. ALLERGIES: None. SOCIAL HISTORY: Denies tobacco use. PHYSICAL EVALUATION OF THE RIGHT KNEE: Range of motion 0-125. Mild effusion. Tenderness medial joint line. Positive medial Kong's. Ligaments stable. Hip rotation without pain. Distal neurovascular exam intact. RADIOGRAPHS: Radiographs of the right knee revealed mild osteoarthritis. Right knee MRI revealed an abnormality through the posteromedial meniscus. IMPRESSION: 1. Internal derangement of right knee with osteochondral tear versus meniscal tear. 2. Asthma. 3. Hyperlipidemia. PLAN: Right knee arthroscopy with partial meniscectomy versus chondroplasty and debridement. Surgery scheduled for 02/08/2021. MMODL / IJN: [id number] /
[~2021-02-08 10:07] MED LIST: DEXAMETHASONE SOD PHOSPHATE 4 MG/ML 1 ML VIAL IV ONE; LACTATED RINGERS 1,000 ML IV SCH; LIDOCAINE 1% (10MG/ML) FOR IV START INTRADERMA PRN; MIDAZOLAM 2 MG/2 ML VIAL IV PRN; ONDANSETRON 4 MG/2 ML VIAL IVP ONE
[2021-02-08 10:52] LABS: Glucose,Whole Blood 134 mg/dL (75-99)
[2021-02-08] MEDS ORDERED: fentaNYL (PF) 50 MCG/ML 2 ML AMP ONE (13:02)
[2021-02-08] MEDS ORDERED: PROPOFOL 10 MG/ML 20 ML VIAL IV ONE (13:02)
[2021-02-08] MEDS ORDERED: LIDOCAINE 1% INJ 10MG/ML (20 ML MDV) ONE (13:02)
[2021-02-08] MEDS ORDERED: SUCCINYLCHOLINE CHLORIDE 100 MG/5 ML SYR IV ONE (13:02)
[2021-02-08] MEDS ORDERED: MIDAZOLAM 2 MG/2 ML VIAL ONE (13:02)
[2021-02-08] MEDS ORDERED: BUPIVACAINE (PF) 0.25% 30 ML VIAL SQ ONE ×2 (13:05→13:31)
--- NOTE | 2021-02-08 13:42 | P.OP ---
Date of Procedure: 02/08/21 Preoperative Diagnosis: Internal derangement right knee Postoperative Diagnosis: 1. Tear medial meniscus right knee 2. Reactive synovitis medial, lateral and suprapatellar compartments right knee Procedure(s) Performed: 1. Arthroscopic partial medial meniscectomy right knee 2. Arthroscopic partial synovectomy medial, lateral and suprapatellar compartments right knee Anesthesia: WILFRIDOA, local Surgeon: Rober Laureano Estimated Blood Loss (ml): 7 Pathology: none sent Condition: stable Disposition: PACU Indications for Procedure: 60-year-old patient seen with progressive right knee pain. After treatment options were discussed, he elected to proceed with arthroscopy. Operative Findings: See description of procedure Description of Procedure: Patient was taken to the operative suite. Patient underwent a general anes thetic by the department of anesthesia. Patient was given preoperative antibiotics. The right lower extremity was placed in a well-padded arthroscopic leg machuca. The right leg was prepped and draped in the normal sterile orthopedic fashion. A lateral parapatellar and suprapatellar incision was made. Trochars were inserted. Arthroscopy was initiated. Suprapatellar pouch revealed diffuse thick reactive synovitis. The patellofemoral joint appeared articulate congruently. There was grade 1/2 chondromalacia of the femoral sulcus. The scope was guided into the medial gutter. No loose body or plica were identified. The scope was then guided into the medial compartment. A medial parapatellar incision was made. Trocar inserted followed by probe. There was a complex tear involving the posterior horn of the medial meniscus. There was thick reactive synovitis anteriorly. There were grade 1 chondromalacia changes of the medial compartment. I performed a partial medial meniscectomy getting down to stable meniscal tissue. I performed a partial synovectomy decompressing the thick reactive synovitis. The shaver was removed. The residual meniscus was stable. There was good decompression of the synovitis. Scope and probe were then guided into the intercondylar notch. Cruciates were identified, probed and found to be stable. The scope and probe were then guided into lateral compartment. Lateral meniscus was probed and found to be stable. There was thick reactive synovitis anteriorly. I introduced a motorized shaver and performed a partial synovectomy. The shaver was removed. There was good decompression of the synovitis. The scope was in guided back into the suprapatellar compartment. I introduced a motorized shaver into the suprapatellar compartment. I debrided some piecemeal fragments of meniscus I encountered. I performed a partial synovectomy. The shaver was removed. There was good decompression of the synovitis. I took one more look on the entire knee, no residual debris. Instruments were now removed from the joint. The joint was infiltrated with .25% Marcaine. Steri-Strips were applied to the portal sites. Sterile dressings were applied. The patient was placed into a BOOKER hose. No tourniquet was utilized. The patient was awakened, transferred to a bed and taken to recovery stable satisfactory condition.
[2021-02-08 14:02] VITALS: TEMP 96.8
[2021-02-08] MEDS: HYDROmorphone 0.5 MG/0.5 ML SYRINGE IVP PRN ×2 (14:11→14:22)
[2021-02-08 14:12] VITALS: RESP 16
[2021-02-08 15:17] VITALS: BP 145/77; PULSE 65
== END 2021-02-08 15:21 | disposition home or self-care (01) ==
LOC: OR 10:07
PROVIDERS: ATTEND Orthopaedic Surgery
DX: M23.203 Derangement of unspecified medial meniscus due to old tear or injury, right knee (principal); M65.861 Other synovitis and tenosynovitis, right lower leg; Z79.1 Long term (current) use of non-steroidal anti-inflammatories (NSAID); Z79.82 Long term (current) use of aspirin; Z79.899 Other long term (current) drug therapy; Z98.890 Other specified postprocedural states; E78.5 Hyperlipidemia, unspecified; E11.9 Type 2 diabetes mellitus without complications; M17.11 Unilateral primary osteoarthritis, right knee; J45.909 Unspecified asthma, uncomplicated; Z87.442 Personal history of urinary calculi
CPT/HCPCS: 29881; 29876; J2250; J1100; J0690; J2405; J2001; J3010; J0330; J2704; J1170

== ENCOUNTER → 2021-04-28 | Outpatient (CLI) | payer OTHER ==
--- NOTE | 2021-04-29 05:11 | MR ---
EXAMINATION TYPE: MR knee RT wo con DATE OF EXAM: 04/28/2021 COMPARISON: None HISTORY: Right knee pain Multiplanar multiecho imaging of the right knee without contrast. There is moderate knee joint effusion. Patella is intact. The posterior cruciate ligament is intact. There is partial tear of the anterior cruciate ligament. The collateral ligaments are intact. There is small horizontal tear of the posterior horn of the lateral meniscus extending to the inferio r surface. There is some truncation and deformity of the posterior horn of the medial meniscus that c ould be from surgery and complex tear. There is no evidence of a fracture. I see no bony destructive process. There is irregular popliteal cyst that measures 3.6 x 1.5 cm. There is no evidence of a frac ture. IMPRESSION: Partial tear of the anterior cruciate ligament. Large knee joint effusion. Popliteal cyst. Deformity of the posterior horn medial meniscus consistent with surgery and tear. Small horizontal tear of the posterior horn of the lateral meniscus.
== END | disposition home or self-care (01) ==
LOC: RADMRIMAIN 11:06
PROVIDERS: ATTEND Orthopaedic Surgery
DX: M23.611 Other spontaneous disruption of anterior cruciate ligament of right knee (principal); M23.351 Other meniscus derangements, posterior horn of lateral meniscus, right knee; M71.21 Synovial cyst of popliteal space [Baker], right knee

== ENCOUNTER → 2021-05-08 | Outpatient (CLI) | payer OTHER ==
[2021-05-08 13:48] LABS: Basophils # (A) 0.1 k/uL (0-0.2); Basophils % (A) 2 %; Eosinophils # (A) 0.1 k/uL (0-0.7); Eosinophils % (A) 2 %; HCT 49.7 % (39.0-53.0); HGB 16.2 gm/dL (13.0-17.5); Lymphocytes # (A) 3.2 k/uL (1.0-4.8); Lymphocytes % (A) 36 %; MCHC 32.6 g/dL (31.0-37.0); MCV 95.1 fL (80.0-100.0); Mean Platelet Volume 7.8; Monocytes # (A) 0.5 k/uL (0-1.0); Monocytes % (A) 5 %; Neutrophils # (A) 4.6 k/uL (1.3-7.7); Neutrophils % (A) 53 %; Platelet Count 308 k/uL (150-450); RBC 5.23 m/uL (4.30-5.90); RDW 11.7 % (11.5-15.5); WBC 8.7 k/uL (3.8-10.6)
[2021-05-08 14:03] LABS: Potassium 4.7 mmol/L (3.5-5.1)
== END | disposition home or self-care (01) ==
LOC: LABPAT 13:04
PROVIDERS: ATTEND Orthopaedic Surgery
DX: Z01.812 Encounter for preprocedural laboratory examination (principal); M23.91 Unspecified internal derangement of right knee
CPT/HCPCS: 80051; 85025

== ENCOUNTER 2021-05-18 12:28 | Day surgery (SDC) | payer BC ==
[2021-05-16 11:51] VITALS: BMI 27.9
--- NOTE | 2021-05-17 22:38 | HP ---
HISTORY AND PHYSICAL DATE OF SURGERY: 05/18/2021 Rivas Greenberg is a 61-year-old patient seen with progressive right knee pain. We discussed options for treatment. He elected to proceed with arthroscopy. Consent obtained. PAST MEDICAL HISTORY: Hypertension, hyperlipidemia. PAST SURGICAL HISTORY: Knee arthroscopy. DAILY MEDICATIONS: Aspirin, atorvastatin, ibuprofen. ALLERGIES: None. SOCIAL HISTORY: Denies tobacco use. PHYSICAL EVALUATION OF THE RIGHT KNEE: Range of motion is -1/2 to 115 degrees. Mild effusion. Tenderness medial joint line. Positive medial Kong's. Positive lateral Kong's. Ligaments are stable. Hip rotation is without pain. Distal neurovascular exam is intact. Previous radiographs of the right knee failed to reveal any osseous abnormality. An MRI of the right knee revealed a medial meniscal tear and lateral meniscal tear and popliteal cyst. No fracture. Partial ACL tear. IMPRESSION: 1. Internal derangement of the right knee with meniscal tear. 2. Partial ACL tear, right knee. 3. Hypertension. PLAN: Right knee arthroscopy with partial meniscectomy and debridement. MMODL / IJN: [id number] /
[~2021-05-18 12:28] MED LIST changes: -LIDOCAINE 1% (10MG/ML) FOR IV START INTRADERMA PRN; -MIDAZOLAM 2 MG/2 ML VIAL IV PRN
[2021-05-18 13:02] VITALS: RESP 16
[2021-05-18 13:10] LABS: Glucose,Whole Blood 126 mg/dL (75-99)
[2021-05-18] MEDS ORDERED: PROPOFOL 10 MG/ML 20 ML VIAL IV ONE (14:04)
[2021-05-18] MEDS ORDERED: MIDAZOLAM 2 MG/2 ML VIAL ONE (14:04)
[2021-05-18] MEDS ORDERED: LIDOCAINE 1% INJ 10MG/ML (20 ML MDV) ONE (14:04)
[2021-05-18] MEDS ORDERED: KETOROLAC 15 MG/ML 1 ML VIAL ONE (14:04)
[2021-05-18] MEDS ORDERED: fentaNYL (PF) 50 MCG/ML 2 ML AMP ONE (14:04)
[2021-05-18] MEDS ORDERED: BUPIVACAINE (PF) 0.25% 30 ML VIAL INTRAARTIC ONE (14:09)
--- NOTE | 2021-05-18 14:57 | P.OP ---
Date of Procedure: 05/18/21 Preoperative Diagnosis: Internal derangement right knee Postoperative Diagnosis: 1. Tear medial meniscus right knee 2. Partial ACL tear right knee 3. Reactive synovitis medial, lateral and suprapatellar compartments right knee Procedure(s) Performed: 1. Arthroscopic partial medial meniscectomy right knee 2. Arthroscopic debridement partial ACL tear right knee 3. Arthroscopic partial synovectomy medial, lateral and suprapatellar compartments right knee Anesthesia: WILFRIDOA, local Surgeon: Rober Laureano Estimated Blood Loss (ml): 8 Pathology: none sent Condition: stable Disposition: PACU Indications for Procedure: 61-year-old gentleman seen with persistent right knee pain. We discussed options for treatment. He elected to proceed with arthroscopy. Consent was obtained. Operative Findings: See description of procedure Description of Procedure: Patient was taken to the operative suite. Patient underwent a general anesthetic by the department of anesthesia. Patient was given preoperative antibiotics. The right lower extremity was placed in a well-padded arthroscopic leg machuca. The right leg was prepped and draped in the normal sterile orthopedic fashion. A lateral parapatellar and suprapatellar incision was made. Trochars were inserted. Arthroscopy was initiated. Suprapatellar pouch revealed diffuse thick reactive synovitis. The patellofemoral joint appeared to articulate congruently. There was grade 1 chondromalacia with no osteochondral tears present. The scope was guided into the medial gutter. No loose bodies or plica were identified. The scope was then guided into the medial compartment. A medial parapatellar incision was made. Trocar inserted followed by probe. There was a radial tear involving the posterior horn and midbody junction area. There was grade 1 chondromalacia of the medial compartment with no tears. There was some thick reactive synovitis anteriorly. I performed a partial medial meniscectomy getting down to stable meniscal tissue. I performed a partial synovectomy. Shaver was removed. The residual meniscus was found to be stable. There was good decompression of the synovitis. Scope and probe were then guided into the intercondylar notch. There was some partial tearing of the anterior cruciate ligament along its very anterior fibers. I introduced a motorized shaver and debrided that out. The residual ACL was stable. The PCL appeared stable.. The scope and probe were then guided into lateral compartment. The lateral meniscus was probed and found to be stable. There were some very mild grade 1 chondromalacia changes of the tibial plateau medially. There was thick reactive synovitis anteriorly. I introduced a motorized shaver and performed a partial synovectomy. The shaver was removed. There was good decompression of the synovitis. The scope was in guided back into the suprapatellar compartment. I introduced a motorized shaver into the suprapatellar compartment. I debrided some piecemeal fragments of meniscus I encountered. I performed a partial synovectomy. The shaver was removed. There was good decompression of the synovitis. I took one more look around the entire knee, no residual debris. Instruments were now removed from the joint. The joint was infiltrated with .25% Marcaine. Steri-Strips were applied to the portal sites. Sterile dressings were applied. The patient was placed into a BOOKER hose. No tourniquet was utilized. The patient was awakened, transferred to a bed and taken to recovery stable satisfactory condition.
[2021-05-18 14:58] VITALS: TEMP 97.8
[2021-05-18] MEDS: HYDROmorphone 0.5 MG/0.5 ML SYRINGE IVP PRN ×2 (15:12→15:22)
[2021-05-18] MEDS ORDERED: diphenhydrAMINE 50 MG/ML 1 ML VIAL ONE (15:41)
[2021-05-18] MEDS ORDERED: diphenhydrAMINE 50 MG/ML 1 ML VIAL IVP ONE (15:43)
[2021-05-18] MEDS ORDERED: HYDROcodone/APAP 5-325MG 1 EACH TAB ONE (15:53)
[2021-05-18] MEDS ORDERED: HYDROcodone/APAP 5-325MG 1 EACH TAB PO ONE (15:57)
[2021-05-18 16:12] VITALS: BP 129/72; PULSE 70
== END 2021-05-18 16:45 | disposition home or self-care (01) ==
LOC: OR 12:28
PROVIDERS: ATTEND Orthopaedic Surgery
DX: M23.203 Derangement of unspecified medial meniscus due to old tear or injury, right knee (principal); S83.511A Sprain of anterior cruciate ligament of right knee, initial encounter; X58.XXXA Exposure to other specified factors, initial encounter; M65.861 Other synovitis and tenosynovitis, right lower leg; I10 Essential (primary) hypertension; E78.5 Hyperlipidemia, unspecified; Z98.890 Other specified postprocedural states; Z79.1 Long term (current) use of non-steroidal anti-inflammatories (NSAID); Z79.82 Long term (current) use of aspirin; Z79.899 Other long term (current) drug therapy
CPT/HCPCS: 29881; J2250; J1200; J1100; J0690; J2405; J2001; J3010; J1885; J2704; J1170

== ENCOUNTER → 2024-07-16 | Outpatient (CLI) | payer BC ==
--- NOTE | 2024-07-17 15:23 | NM ---
EXAMINATION TYPE: NM DatScan Brain SPECT DATE OF EXAM: 07/17/2024 COMPARISON: NONE CLINICAL INDICATION: Male, 64 years old with history of G25.0, G25.2; TECHNIQUE: 10 drops of Lugol's solution was administered 1 hour prior to injection as a thyroid bloc kenan agent. After the administration of 4.44 mCi I-123 Ioflupane DaTscan. Images obtained 3 hours p ost injection. SPECT images of the brain were acquired with axial and coronal reconstructions. FINDINGS: There is normal comma shaped activity within the bilateral corpora striata though with mildly increas ed background activity. IMPRESSION: Z score values fall within normal limits and there is symmetric activity in the corpora striata which would favor either a normal exam or patient with essential tremor. However, follow-up can be conside red given the mildly increased background activity. [facility], , 07/17/2024 3:21 PM
== END | disposition home or self-care (01) ==
LOC: RADNMMAIN 11:04
PROVIDERS: ATTEND Family Medicine
DX: G25.0 Essential tremor (principal); G25.2 Other specified forms of tremor
CPT/HCPCS: 78803; A9584